=== PATIENT | male | born 1960 | race African-American/Black ===

== ENCOUNTER 2021-06-01 22:27 | Emergency (ER) | payer OTHER ==
[~2021-06-01] VITALS: Ht 170.2 cm; Wt 97.5 kg
[2021-06-01 22:59] LABS: URINE BILIRUBIN NEGATIVE (Negative); URINE BLOOD NEGATIVE (Negative); URINE CLARITY CLEAR; URINE COLOR YELLOW; URINE GLUCOSE-RANDOM* 3+ (Negative); URINE KETONES NEGATIVE (Negative); URINE LEUKOCYTES-REFLEX NEGATIVE (Negative); URINE NITRITE-REFLEX NEGATIVE (Negative); URINE PROTEIN (DIPSTICK) NEGATIVE (Negative); URINE SPECIFIC GRAVITY <= 1.005 (1.005-1.035); URINE UROBILINOGEN 0.2 E.U./dl (0.2-1.0)
[2021-06-01 23:22] LABS: ABSOLUTE NEUTROPHILS 4.2 thou/uL (1.4-8.2); BASOPHILS 0.5 % (0.0-2.0); EOSINOPHILS 1.7 % (0.0-3.0); HEMATOCRIT 43.9 % (42.0-52.0); HEMOGLOBIN 14.1 gm/dL (14.0-18.0); MCH 28.6 pg (26.0-34.0); MCV 89.2 fL (80.0-100.0); MONOCYTES 5.6 % (1.0-8.0); PLATELET COUNT 257 thou/uL (150-400); POLYS 82.2 % (36.0-66.0); RBC 4.92 mil/uL (4.50-6.00); WBC 5.1 thou/uL (4.0-11.0)
[2021-06-01 23:27] LABS: CALCIUM 8.5 mg/dL (8.5-10.1); CREATININE 1.4 mg/dL (0.7-1.3); POTASSIUM 4.2 mmol/L (3.5-5.1)
[2021-06-01 23:36] LABS: ALBUMIN 3.2 g/dL (3.4-5.0); TOTAL BILIRUBIN 0.3 mg/dL (0.2-1.0); TOTAL PROTEIN 6.8 g/dL (6.4-8.2)
[2021-06-02 00:58] VITALS: BP 126/77
--- NOTE | 2021-06-02 11:28 | EKG ---
[facility] [place] [place] [address] ELECTROCARDIOGRAM REPORT Name: WILL CUENCA Room #: DEP MARIA T Christian#: [id number] Admission: 06/01/21 Attend Phys: Discharge: 06/02/21 Date of : 58 Report #: [id number] [facility] ED Test Date: 2021-06-01 Test Time: 22:49:11 Pat Name: WILL CUENCA Department: Room: Gender: M Rn Care Manager: SLICK : 1960 Requested By: Anil Hamilton Order Number: [id number] MD: Christiano Weber Measurements Intervals [place] Rate: 73 P: 20 KS: 184 QRS: -67 QRSD: 151 T: -2 QT: 413 QTc: 456 Interpretive Statements Sinus rhythm Probable left atrial enlargement RBBB Baseline wander in lead(s) V1 No previous ECG available for comparison Electronically Signed On 06-02-2021 11:27:45 PHYSICIAN LIAISON by Christiano Weber [email or web address] <ELECTRONICALLY SIGNED> By: Christiano Weber MD, [facility] 06/02/21 [id number] Christiano Weber MD, FACC /EPI
== END 2021-06-02 01:08 | disposition home or self-care (01) ==
LOC: ER 22:27
PROVIDERS: Emergency Medicine
DX: R42 Dizziness and giddiness (principal); Z20.822 Contact with and (suspected) exposure to COVID-19